=== PATIENT | female | born 1990 | race Hispanic/Latino ===

== ENCOUNTER 2017-08-22 22:41 | Outpatient (CLI) | payer MEDICAID, OTHER ==
[2017-08-22 22:59] VITALS: BP 133/83
--- NOTE | 2017-08-23 00:17 | Ultrasound Report ---
FINAL REPORT EXAM: US OB LIMITED HISTORY: MAIK TECHNIQUE: A limited transabdominal OB sonogram was performed. FINDINGS: There is a single fetus in cephalic presentation with a heart rate 122 BPM. The placenta is anterior in position and is grade 2. The amniotic fluid volume index is 13.6 cm which is normal. IMPRESSION: MAIK equals 13.6 cm which is normal. Cephalic presentation. heart is 122 BPM.
--- NOTE | 2017-08-23 00:31 | Ultrasound Report ---
FINAL REPORT EXAM: US OB BPP WO NON-STRESS HISTORY: well being TECHNIQUE: A biophysical profile was obtained. FINDINGS: For breathing movements, a score of 2 out of 2 was obtained. For movements, a score of 2 out of 2 was obtained. For posterior in tone, a score of 2 out of 2 was obtained For qualitative amniotic fluid volume, a score of 2 out of 2 was obtained. The total score for the biophysical profile is 8 out of 8. The heart rate is 122 BPM IMPRESSION: Biophysical profile score of 8 out of 8. heart rate 122 BPM
== END 2017-08-23 00:32 | disposition home or self-care (01) ==
LOC: TRG 22:41
PROVIDERS: ATTEND Obstetrics & Gynecology
DX: O99.333 Smoking (tobacco) complicating pregnancy, third trimester (principal); O47.1 False labor at or after 37 completed weeks of gestation; Z3A.38 38 weeks gestation of pregnancy
CPT/HCPCS: 59025; 76815; 76819